=== PATIENT | male | born 1965 | race Caucasian/White ===

== ENCOUNTER → 2016-11-08 | Outpatient (CLI) | payer BC | LOC: LAB 13:11 | DX: E83.118 Other hemochromatosis (principal) ==

== ENCOUNTER → 2016-12-18 | Outpatient (CLI) | payer BC | LOC: LAB 14:29 | DX: E83.118 Other hemochromatosis (principal) ==

== ENCOUNTER → 2017-01-15 | Outpatient (CLI) | payer BC | LOC: LAB 14:03 | DX: E83.118 Other hemochromatosis (principal) ==

== ENCOUNTER → 2017-03-07 | Outpatient (CLI) | payer BC | LOC: LAB 13:13 | DX: E83.118 Other hemochromatosis (principal) ==

== ENCOUNTER → 2017-03-27 | Outpatient (REF) | LOC: LAB 14:01 | DX: E83.119 Hemochromatosis, unspecified (principal) ==

== ENCOUNTER → 2017-03-27 | Outpatient (CLI) | payer BC | LOC: LAB 14:03 | DX: E83.118 Other hemochromatosis (principal) ==

== ENCOUNTER → 2017-05-02 | Outpatient (CLI) | payer BC | LOC: LAB 13:46 | DX: E83.118 Other hemochromatosis (principal) ==

== ENCOUNTER → 2017-05-02 | Outpatient (REF) | LOC: LAB 13:43 | DX: E83.119 Hemochromatosis, unspecified (principal) ==

== ENCOUNTER → 2017-06-01 | Outpatient (REF) | LOC: LAB 13:23 | DX: E83.119 Hemochromatosis, unspecified (principal) ==

== ENCOUNTER → 2017-06-01 | Outpatient (CLI) | payer BC | LOC: LAB 13:25 | DX: E83.118 Other hemochromatosis (principal) ==

== ENCOUNTER → 2017-06-27 | Outpatient (REF) | LOC: LAB 10:01 | DX: E83.118 Other hemochromatosis (principal) ==

== ENCOUNTER → 2017-07-30 | Outpatient (REF) | LOC: LAB 13:55 | DX: E83.118 Other hemochromatosis (principal) ==

== ENCOUNTER → 2018-07-26 | Outpatient (CLI) | payer BC | LOC: CARDREHAB 11:26 | DX: G47.33 Obstructive sleep apnea (adult) (pediatric) (principal); R06.83 Snoring; R09.02 Hypoxemia; R53.83 Other fatigue; G47.10 Hypersomnia, unspecified; E66.3 Overweight; Z68.29 Body mass index [BMI] 29.0-29.9, adult | CPT/HCPCS: G0399 ==

== ENCOUNTER → 2018-08-30 | Outpatient (CLI) | payer BC ==
[2018-08-30 11:45] LABS: EOS # 0.1 (0.04-0.40); LYMPH# 1.9 (1.50-4.00); MEAN CELL VOLUME 99 fl (78-100); MEAN CORPUSCULAR HEMOGLOBIN 34 pg (27-31); MEAN CORPUSCULAR HGB CONC 34 g/dL (33-37); MEAN PLATELET VOLUME 9.9 fl (7.4-10.4); PLATELET COUNT 184 K/mm3 (130-400); RED BLOOD COUNT 4.75 M/mm3 (4.20-5.60); RED CELL DISTRIBUTION WIDTH 12.7 % (11.5-14.5)
== END ==
LOC: LAB 10:36
PROVIDERS: Internal Medicine Medical Oncology
DX: E83.119 Hemochromatosis, unspecified (principal)

== ENCOUNTER → 2018-09-20 | Outpatient (CLI) | payer BC ==
[2018-09-20 14:31] LABS: HEMOGLOBIN 14.7 g/dL (13.5-18.0)
== END ==
LOC: LAB 14:13
PROVIDERS: Internal Medicine Medical Oncology
DX: E83.119 Hemochromatosis, unspecified (principal)

== ENCOUNTER → 2018-10-25 | Outpatient (CLI) | payer BC ==
[2018-10-25 15:07] LABS: HEMATOCRIT 43.2 % (42.0-52.0); HEMOGLOBIN 14.6 g/dL (13.5-18.0)
== END ==
LOC: LAB 14:29
PROVIDERS: Internal Medicine Medical Oncology
DX: E83.119 Hemochromatosis, unspecified (principal)

== ENCOUNTER → 2018-11-11 | Outpatient (CLI) | payer BC ==
[2018-11-11 14:43] LABS: HEMATOCRIT 42.7 % (42.0-52.0); HEMOGLOBIN 14.1 g/dL (13.5-18.0)
== END ==
LOC: LAB 14:28
PROVIDERS: Internal Medicine Medical Oncology
DX: E83.119 Hemochromatosis, unspecified (principal)

== ENCOUNTER → 2018-11-15 | Outpatient (CLI) | payer BC ==
[2018-11-15 09:55] LABS: ALBUMIN 4.1 g/dL (3.5-5.0); CALCIUM 8.9 mg/dL (8.4-10.2); POTASSIUM 4.1 mmol/L (3.6-5.0); TOTAL BILIRUBIN 0.4 mg/dL (0.2-1.3); TOTAL PROTEIN 6.9 g/dL (6.3-8.2)
[2018-11-15 09:56] LABS: HEMATOCRIT 38.5 % (42.0-52.0); HEMOGLOBIN 12.9 g/dL (13.5-18.0); MEAN CELL VOLUME 101 fl (78-100); MEAN CORPUSCULAR HEMOGLOBIN 34 pg (27-31); MEAN CORPUSCULAR HGB CONC 34 g/dL (33-37); MEAN PLATELET VOLUME 9.8 fl (7.4-10.4); PLATELET COUNT 169 K/mm3 (130-400); RED BLOOD COUNT 3.83 M/mm3 (4.20-5.60); RED CELL DISTRIBUTION WIDTH 12.2 % (11.5-14.5); WHITE BLOOD COUNT 5.1 K/mm3 (4.8-10.8)
[2018-11-15 10:54] LABS: LYMPHOCYTE 30 % (20-51); MONOCYTE 5 % (3-10); NEUTROPHILS 63 % (42-75)
[2018-11-15 10:55] LABS: ERYTHROCYTE SEDIMENTATION RATE 3 mm/hr (0-20)
[2018-11-15 23:27] LABS: TESTOSTERONE 203 ng/dL (221-716)
== END ==
LOC: LAB 09:14
PROVIDERS: Internal Medicine
DX: Z00.00 Encounter for general adult medical examination without abnormal findings (principal); E83.119 Hemochromatosis, unspecified

== ENCOUNTER → 2019-01-30 | Outpatient (CLI) | payer BC ==
[2019-01-30 15:12] LABS: EOS % 0.5 % (0.0-4.0); HEMATOCRIT 44.7 % (42.0-52.0); HEMOGLOBIN 14.7 g/dL (13.5-18.0); LYMPH# 1.7 (1.50-4.00); MEAN CELL VOLUME 99 fl (78-100); MEAN CORPUSCULAR HEMOGLOBIN 33 pg (27-31); MEAN CORPUSCULAR HGB CONC 33 g/dL (33-37); MEAN PLATELET VOLUME 9.3 fl (7.4-10.4); MONO # 0.9 (0.20-0.80); NEU # 5.4 (1.40-6.50); PLATELET COUNT 173 K/mm3 (130-400); RED BLOOD COUNT 4.51 M/mm3 (4.20-5.60); RED CELL DISTRIBUTION WIDTH 12.6 % (11.5-14.5); WHITE BLOOD COUNT 8.1 K/mm3 (4.8-10.8)
== END ==
LOC: LAB 15:00
PROVIDERS: Internal Medicine Medical Oncology
DX: E83.119 Hemochromatosis, unspecified (principal)

== ENCOUNTER → 2019-02-06 | Outpatient (CLI) | payer BC ==
[~2019-02-06] VITALS: Ht 188 cm; Wt 97.7 kg
[~2019-02-06] MED LIST: ANDRODERM2 MG/24 HR TP; ATORVASTATIN CA20 MG PO; LISINOPRIL10 MG PO; NOVAPLUS DE200 MG/ML IM; VENLAFAXINE HYD75 MG PO
[2019-02-06 15:55] VITALS: BP 128/84
--- NOTE | 2019-02-06 16:15 | NUR ---
PATIENT NOTIFIED DR. DUNN DID NOT WANT THE HOLTER MONITOR APPLIED. WILL FOLLOW UP WITH DR. DUNN FOR FURTHER CONCERNS OR RESULTS.
== END ==
LOC: AMSURD 15:38
DX: R00.0 Tachycardia, unspecified (principal)

== ENCOUNTER → 2019-03-05 | Outpatient (CLI) | payer BC ==
[2019-02-06 15:55] VITALS: BP 128/84
[2019-03-05 14:23] LABS: EOS % 0.5 % (0.0-4.0); HEMATOCRIT 46.7 % (42.0-52.0); HEMOGLOBIN 15.2 g/dL (13.5-18.0); LYMPH# 1.5 (1.50-4.00); MEAN CELL VOLUME 99 fl (78-100); MEAN CORPUSCULAR HEMOGLOBIN 32 pg (27-31); MEAN CORPUSCULAR HGB CONC 33 g/dL (33-37); MEAN PLATELET VOLUME 10.2 fl (7.4-10.4); MONO # 0.8 (0.20-0.80); NEU # 5.1 (1.40-6.50); PLATELET COUNT 187 K/mm3 (130-400); WHITE BLOOD COUNT 7.5 K/mm3 (4.8-10.8)
== END ==
LOC: LAB 13:48
PROVIDERS: Internal Medicine Medical Oncology
DX: E83.118 Other hemochromatosis (principal)

== ENCOUNTER 2019-05-29 15:30 | Outpatient (RCR) | payer BC ==
[2019-02-06 15:55] VITALS: BP 128/84
== END 2019-05-29 16:00 | disposition still patient (30) ==
LOC: PT 15:30
DX: M25.511 Pain in right shoulder (principal); M25.512 Pain in left shoulder

== ENCOUNTER → 2020-09-21 | Outpatient (CLI) | payer OTHER ==
[2019-02-06 15:55] VITALS: BP 128/84
[2020-09-21 13:55] LABS: HEMATOCRIT 49.3 % (42.0-52.0); HEMOGLOBIN 16.8 g/dL (13.5-18.0)
== END ==
LOC: LAB 13:41
PROVIDERS: Internal Medicine Medical Oncology
DX: E83.118 Other hemochromatosis (principal)

== ENCOUNTER → 2020-10-06 | Outpatient (CLI) | payer OTHER ==
[2019-02-06 15:55] VITALS: BP 128/84
[2020-10-06 14:46] LABS: EOS # 0.1 (0.04-0.40); EOS % 0.8 % (0.0-4.0); HEMOGLOBIN 15.7 g/dL (13.5-18.0); LYMPH# 1.7 (1.50-4.00); MEAN CELL VOLUME 101 fl (78-100); MEAN CORPUSCULAR HEMOGLOBIN 34 pg (27-31); MEAN CORPUSCULAR HGB CONC 33 g/dL (33-37); MEAN PLATELET VOLUME 9.9 fl (7.4-10.4); NEU # 5.6 (1.40-6.50); PLATELET COUNT 190 K/mm3 (130-400); RED BLOOD COUNT 4.66 M/mm3 (4.20-5.60); RED CELL DISTRIBUTION WIDTH 12.7 % (11.5-14.5); WHITE BLOOD COUNT 8.4 K/mm3 (4.8-10.8)
== END ==
LOC: LAB 14:24
PROVIDERS: Internal Medicine Medical Oncology
DX: E83.119 Hemochromatosis, unspecified (principal)

== ENCOUNTER → 2020-10-22 | Outpatient (CLI) | payer OTHER ==
[2019-02-06 15:55] VITALS: BP 128/84
[2020-10-22 14:12] LABS: EOS # 0.1 (0.04-0.40); HEMATOCRIT 42.5 % (42.0-52.0); HEMOGLOBIN 14.6 g/dL (13.5-18.0); LYMPH# 1.9 (1.50-4.00); MEAN CELL VOLUME 99 fl (78-100); MEAN CORPUSCULAR HEMOGLOBIN 34 pg (27-31); MEAN CORPUSCULAR HGB CONC 34 g/dL (33-37); NEU # 6.1 (1.40-6.50); PLATELET COUNT 254 K/mm3 (130-400); WHITE BLOOD COUNT 9.1 K/mm3 (4.8-10.8)
== END ==
LOC: LAB 13:54
PROVIDERS: Internal Medicine Medical Oncology
DX: E83.118 Other hemochromatosis (principal)

== ENCOUNTER → 2020-11-05 | Outpatient (CLI) | payer OTHER ==
[2019-02-06 15:55] VITALS: BP 128/84
[2020-11-05 14:49] LABS: ALBUMIN 4.4 g/dL (3.5-5.0); POTASSIUM 3.9 mmol/L (3.5-5.1)
[2020-11-05 14:50] LABS: HEMATOCRIT 44.2 % (42.0-52.0); HEMOGLOBIN 14.7 g/dL (13.5-18.0); MEAN CELL VOLUME 101 fl (78-100); MEAN CORPUSCULAR HEMOGLOBIN 34 pg (27-31); MEAN CORPUSCULAR HGB CONC 33 g/dL (33-37); MEAN PLATELET VOLUME 9.8 fl (7.4-10.4); PLATELET COUNT 204 K/mm3 (130-400); RED BLOOD COUNT 4.37 M/mm3 (4.20-5.60); RED CELL DISTRIBUTION WIDTH 12.4 % (11.5-14.5); WHITE BLOOD COUNT 8.2 K/mm3 (4.8-10.8)
[2020-11-05 14:51] LABS: TOTAL PROTEIN 7.3 g/dL (6.4-8.3)
[2020-11-05 14:53] LABS: TOTAL BILIRUBIN 0.7 mg/dL (0.2-1.2)
[2020-11-05 15:00] LABS: BAND 2 % (0-10); LYMPHOCYTE 26 % (20-51); MONOCYTE 11 % (3-10); NEUTROPHILS 61 % (42-75)
== END ==
LOC: LAB 14:22
PROVIDERS: Internal Medicine Medical Oncology
DX: E83.118 Other hemochromatosis (principal)

== ENCOUNTER → 2020-11-18 | Outpatient (CLI) | payer OTHER ==
[2019-02-06 15:55] VITALS: BP 128/84
[2020-11-18 14:39] LABS: EOS # 0.1 (0.04-0.40); EOS % 0.8 % (0.0-4.0); HEMATOCRIT 44.4 % (42.0-52.0); HEMOGLOBIN 14.7 g/dL (13.5-18.0); MEAN CELL VOLUME 102 fl (78-100); MEAN CORPUSCULAR HEMOGLOBIN 34 pg (27-31); MEAN CORPUSCULAR HGB CONC 33 g/dL (33-37); MEAN PLATELET VOLUME 9.4 fl (7.4-10.4); NEU # 5.3 (1.40-6.50); PLATELET COUNT 174 K/mm3 (130-400); RED BLOOD COUNT 4.35 M/mm3 (4.20-5.60); RED CELL DISTRIBUTION WIDTH 12.4 % (11.5-14.5); WHITE BLOOD COUNT 8.5 K/mm3 (4.8-10.8)
== END ==
LOC: LAB 14:24
PROVIDERS: Internal Medicine Medical Oncology
DX: E83.119 Hemochromatosis, unspecified (principal)

== ENCOUNTER → 2020-12-10 | Outpatient (CLI) | payer OTHER ==
[2019-02-06 15:55] VITALS: BP 128/84
[2020-12-10 10:35] LABS: EOS # 0.1 (0.04-0.40); EOS % 1.3 % (0.0-4.0); HEMATOCRIT 46.6 % (42.0-52.0); HEMOGLOBIN 15.5 g/dL (13.5-18.0); LYMPH# 1.6 (1.50-4.00); MEAN CELL VOLUME 101 fl (78-100); MEAN CORPUSCULAR HEMOGLOBIN 34 pg (27-31); MEAN CORPUSCULAR HGB CONC 33 g/dL (33-37); MEAN PLATELET VOLUME 9.6 fl (7.4-10.4); MONO # 0.7 (0.20-0.80); NEU # 3.8 (1.40-6.50); PLATELET COUNT 168 K/mm3 (130-400); RED BLOOD COUNT 4.63 M/mm3 (4.20-5.60); RED CELL DISTRIBUTION WIDTH 12.8 % (11.5-14.5); WHITE BLOOD COUNT 6.1 K/mm3 (4.8-10.8)
== END ==
LOC: LAB 10:14
PROVIDERS: Internal Medicine Medical Oncology
DX: E83.118 Other hemochromatosis (principal)

== ENCOUNTER → 2021-01-04 | Outpatient (CLI) | payer OTHER ==
[2019-02-06 15:55] VITALS: BP 128/84
[2021-01-04 15:01] LABS: HEMATOCRIT 45.8 % (42.0-52.0); HEMOGLOBIN 15.6 g/dL (13.5-18.0); MEAN CELL VOLUME 99 fl (78-100); MEAN CORPUSCULAR HEMOGLOBIN 34 pg (27-31); MEAN CORPUSCULAR HGB CONC 34 g/dL (33-37); MEAN PLATELET VOLUME 9.8 fl (7.4-10.4); PLATELET COUNT 165 K/mm3 (130-400); RED BLOOD COUNT 4.62 M/mm3 (4.20-5.60); RED CELL DISTRIBUTION WIDTH 12.7 % (11.5-14.5); WHITE BLOOD COUNT 6.7 K/mm3 (4.8-10.8)
[2021-01-04 16:39] LABS: LYMPHOCYTE 26 % (20-51); MONOCYTE 14 % (3-10); NEUTROPHILS 60 % (42-75)
== END ==
LOC: LAB 14:44
PROVIDERS: Internal Medicine Medical Oncology
DX: E83.118 Other hemochromatosis (principal)

== ENCOUNTER → 2021-02-28 | Outpatient (CLI) | payer OTHER ==
[2019-02-06 15:55] VITALS: BP 128/84
[2021-02-28 14:11] LABS: BASO # 0.02 (0.02-0.10); EOS # 0.06 (0.04-0.40); EOS % 0.7 % (0.0-4.0); HEMATOCRIT 44.6 % (42.0-52.0); HEMOGLOBIN 14.9 g/dL (13.5-18.0); MEAN CELL VOLUME 101 fl (78-100); MEAN CORPUSCULAR HEMOGLOBIN 34 pg (27-31); MEAN CORPUSCULAR HGB CONC 33 g/dL (33-37); MEAN PLATELET VOLUME 9.8 fl (7.4-10.4); MONO # 0.78 (0.20-0.80); NEU # 5.94 (1.40-6.50); PLATELET COUNT 171 K/mm3 (130-400); RED BLOOD COUNT 4.44 M/mm3 (4.20-5.60); RED CELL DISTRIBUTION WIDTH 12.7 % (11.5-14.5); WHITE BLOOD COUNT 8.5 K/mm3 (4.8-10.8)
[2021-02-28 14:17] LABS: ALBUMIN 4.1 g/dL (3.5-5.0); POTASSIUM 3.9 mmol/L (3.5-5.1)
[2021-02-28 14:18] LABS: CALCIUM 8.7 mg/dL (8.3-10.5)
[2021-02-28 14:19] LABS: TOTAL PROTEIN 7.1 g/dL (6.4-8.3)
[2021-02-28 14:21] LABS: TOTAL BILIRUBIN 0.8 mg/dL (0.2-1.2)
[2021-02-28 15:36] LABS: ERYTHROCYTE SEDIMENTATION RATE 0 mm/hr (0-20)
[2021-02-28 22:46] LABS: TESTOSTERONE 145 ng/dL (221-716)
== END ==
LOC: LAB 13:48
PROVIDERS: Internal Medicine
DX: Z00.00 Encounter for general adult medical examination without abnormal findings (principal); Z12.5 Encounter for screening for malignant neoplasm of prostate; E83.118 Other hemochromatosis; K90.9 Intestinal malabsorption, unspecified

== ENCOUNTER → 2021-03-10 | Outpatient (CLI) | payer OTHER ==
[2019-02-06 15:55] VITALS: BP 128/84
[2021-03-10 14:48] LABS: HEMATOCRIT 42.7 % (42.0-52.0); HEMOGLOBIN 14.9 g/dL (13.5-18.0)
== END ==
LOC: LAB 14:34
PROVIDERS: Internal Medicine Medical Oncology
DX: E83.118 Other hemochromatosis (principal)

== ENCOUNTER → 2021-03-16 | Outpatient (CLI) | payer OTHER ==
[2019-02-06 15:55] VITALS: BP 128/84
[2021-03-16 14:59] LABS: BASO # 0.04 (0.02-0.10); EOS # 0.11 (0.04-0.40); EOS % 1.2 % (0.0-4.0); HEMATOCRIT 38.4 % (42.0-52.0); HEMOGLOBIN 13.3 g/dL (13.5-18.0); LYMPH# 2.12 (1.50-4.00); MEAN CELL VOLUME 100 fl (78-100); MEAN CORPUSCULAR HEMOGLOBIN 35 pg (27-31); MEAN CORPUSCULAR HGB CONC 35 g/dL (33-37); MEAN PLATELET VOLUME 9.4 fl (7.4-10.4); PLATELET COUNT 207 K/mm3 (130-400); RED BLOOD COUNT 3.85 M/mm3 (4.20-5.60); RED CELL DISTRIBUTION WIDTH 12.6 % (11.5-14.5); WHITE BLOOD COUNT 9.1 K/mm3 (4.8-10.8)
[2021-03-16 15:14] LABS: ALBUMIN 3.9 g/dL (3.5-5.0); POTASSIUM 4.1 mmol/L (3.5-5.1)
[2021-03-16 15:16] LABS: CALCIUM 8.9 mg/dL (8.3-10.5)
[2021-03-16 15:17] LABS: TOTAL PROTEIN 6.4 g/dL (6.4-8.3)
[2021-03-16 15:19] LABS: TOTAL BILIRUBIN 0.5 mg/dL (0.2-1.2)
== END ==
LOC: LAB 14:46
PROVIDERS: Internal Medicine Medical Oncology
DX: E83.118 Other hemochromatosis (principal)

== ENCOUNTER → 2021-03-24 | Outpatient (CLI) | payer OTHER ==
[2019-02-06 15:55] VITALS: BP 128/84
[2021-03-24 13:47] LABS: BASO # 0.02 (0.02-0.10); EOS # 0.08 (0.04-0.40); EOS % 0.8 % (0.0-4.0); HEMATOCRIT 38.2 % (42.0-52.0); HEMOGLOBIN 12.8 g/dL (13.5-18.0); LYMPH# 2.18 (1.50-4.00); MEAN CELL VOLUME 103 fl (78-100); MEAN CORPUSCULAR HEMOGLOBIN 35 pg (27-31); MEAN CORPUSCULAR HGB CONC 34 g/dL (33-37); MEAN PLATELET VOLUME 9.2 fl (7.4-10.4); MONO # 1.03 (0.20-0.80); NEU # 6.96 (1.40-6.50); PLATELET COUNT 202 K/mm3 (130-400); RED CELL DISTRIBUTION WIDTH 13.8 % (11.5-14.5); WHITE BLOOD COUNT 10.4 K/mm3 (4.8-10.8)
== END ==
LOC: LAB 13:32
PROVIDERS: Internal Medicine Medical Oncology
DX: E83.118 Other hemochromatosis (principal)

== ENCOUNTER → 2021-03-31 | Outpatient (CLI) | payer OTHER ==
[2021-03-31 14:27] LABS: BASO # 0.04 (0.02-0.10); EOS # 0.09 (0.04-0.40); EOS % 1.2 % (0.0-4.0); HEMATOCRIT 36.6 % (42.0-52.0); LYMPH# 1.77 (1.50-4.00); MEAN CELL VOLUME 107 fl (78-100); MEAN CORPUSCULAR HEMOGLOBIN 35 pg (27-31); MEAN CORPUSCULAR HGB CONC 33 g/dL (33-37); MEAN PLATELET VOLUME 9.3 fl (7.4-10.4); MONO # 0.78 (0.20-0.80); PLATELET COUNT 174 K/mm3 (130-400); RED BLOOD COUNT 3.42 M/mm3 (4.20-5.60); RED CELL DISTRIBUTION WIDTH 15.4 % (11.5-14.5); WHITE BLOOD COUNT 7.7 K/mm3 (4.8-10.8)
[2021-03-31 14:35] LABS: ALBUMIN 3.8 g/dL (3.5-5.0)
[2021-03-31 14:36] LABS: POTASSIUM 3.7 mmol/L (3.5-5.1)
[2021-03-31 14:37] LABS: CALCIUM 8.6 mg/dL (8.3-10.5)
[2021-03-31 14:38] LABS: TOTAL PROTEIN 6.4 g/dL (6.4-8.3)
[2021-03-31 14:40] LABS: TOTAL BILIRUBIN 0.5 mg/dL (0.2-1.2)
== END ==
LOC: LAB 14:14
PROVIDERS: Internal Medicine Medical Oncology
DX: E83.118 Other hemochromatosis (principal)

== ENCOUNTER → 2021-04-14 | Outpatient (CLI) | payer OTHER ==
[2021-04-14 13:33] LABS: BASO # 0.03 (0.02-0.10); EOS # 0.07 (0.04-0.40); EOS % 0.9 % (0.0-4.0); HEMATOCRIT 40.9 % (42.0-52.0); HEMOGLOBIN 13.6 g/dL (13.5-18.0); LYMPH# 1.99 (1.50-4.00); MEAN CELL VOLUME 105 fl (78-100); MEAN CORPUSCULAR HEMOGLOBIN 35 pg (27-31); MEAN CORPUSCULAR HGB CONC 33 g/dL (33-37); MEAN PLATELET VOLUME 9.5 fl (7.4-10.4); MONO # 0.94 (0.20-0.80); NEU # 5.14 (1.40-6.50); PLATELET COUNT 174 K/mm3 (130-400); RED BLOOD COUNT 3.89 M/mm3 (4.20-5.60); RED CELL DISTRIBUTION WIDTH 13.7 % (11.5-14.5); WHITE BLOOD COUNT 8.2 K/mm3 (4.8-10.8)
== END ==
LOC: LAB 13:22
PROVIDERS: Internal Medicine Medical Oncology
DX: E83.118 Other hemochromatosis (principal)

== ENCOUNTER → 2021-04-28 | Outpatient (CLI) | payer OTHER ==
[2021-04-28 14:29] LABS: BASO # 0.04 (0.02-0.10); EOS # 0.07 (0.04-0.40); EOS % 0.8 % (0.0-4.0); HEMATOCRIT 42.7 % (42.0-52.0); HEMOGLOBIN 14.2 g/dL (13.5-18.0); LYMPH# 1.85 (1.50-4.00); MEAN CELL VOLUME 102 fl (78-100); MEAN CORPUSCULAR HEMOGLOBIN 34 pg (27-31); MEAN CORPUSCULAR HGB CONC 33 g/dL (33-37); MEAN PLATELET VOLUME 9.2 fl (7.4-10.4); MONO # 1.06 (0.20-0.80); NEU # 5.82 (1.40-6.50); PLATELET COUNT 202 K/mm3 (130-400); RED BLOOD COUNT 4.17 M/mm3 (4.20-5.60); RED CELL DISTRIBUTION WIDTH 12.8 % (11.5-14.5); WHITE BLOOD COUNT 8.9 K/mm3 (4.8-10.8)
== END ==
LOC: LAB 14:14
PROVIDERS: Internal Medicine Medical Oncology
DX: E83.118 Other hemochromatosis (principal)

== ENCOUNTER → 2021-05-10 | Outpatient (CLI) | payer OTHER | LOC: LAB 10:05 | DX: Z20.822 Contact with and (suspected) exposure to COVID-19 (principal) ==

== ENCOUNTER → 2021-05-12 | Outpatient (CLI) | payer OTHER ==
[2021-05-12 14:07] LABS: BASO # 0.05 (0.02-0.10); EOS # 0.07 (0.04-0.40); EOS % 0.7 % (0.0-4.0); HEMATOCRIT 44.6 % (42.0-52.0); HEMOGLOBIN 14.6 g/dL (13.5-18.0); MEAN CELL VOLUME 101 fl (78-100); MEAN CORPUSCULAR HEMOGLOBIN 33 pg (27-31); MEAN CORPUSCULAR HGB CONC 33 g/dL (33-37); MEAN PLATELET VOLUME 9.3 fl (7.4-10.4); MONO # 0.92 (0.20-0.80); NEU # 7.48 (1.40-6.50); PLATELET COUNT 207 K/mm3 (130-400); RED CELL DISTRIBUTION WIDTH 12.4 % (11.5-14.5); WHITE BLOOD COUNT 10.3 K/mm3 (4.8-10.8)
[2021-05-12 14:10] LABS: ALBUMIN 4.2 g/dL (3.5-5.0); POTASSIUM 4.1 mmol/L (3.5-5.1)
[2021-05-12 14:11] LABS: CALCIUM 9.3 mg/dL (8.3-10.5)
[2021-05-12 14:12] LABS: TOTAL PROTEIN 7.5 g/dL (6.4-8.3)
[2021-05-12 14:14] LABS: TOTAL BILIRUBIN 0.6 mg/dL (0.2-1.2)
== END ==
LOC: LAB 13:48
PROVIDERS: Internal Medicine Medical Oncology
DX: Z01.89 Encounter for other specified special examinations (principal)

== ENCOUNTER → 2021-05-26 | Outpatient (CLI) | payer OTHER ==
[2021-05-26 14:48] LABS: BASO # 0.03 (0.02-0.10); EOS # 0.08 (0.04-0.40); EOS % 0.8 % (0.0-4.0); HEMATOCRIT 40.8 % (42.0-52.0); LYMPH# 1.79 (1.50-4.00); MEAN CELL VOLUME 102 fl (78-100); MEAN CORPUSCULAR HEMOGLOBIN 33 pg (27-31); MEAN CORPUSCULAR HGB CONC 32 g/dL (33-37); MEAN PLATELET VOLUME 9.2 fl (7.4-10.4); MONO # 1.24 (0.20-0.80); NEU # 7.06 (1.40-6.50); PLATELET COUNT 194 K/mm3 (130-400); RED BLOOD COUNT 3.99 M/mm3 (4.20-5.60); RED CELL DISTRIBUTION WIDTH 12.8 % (11.5-14.5); WHITE BLOOD COUNT 10.2 K/mm3 (4.8-10.8)
== END ==
LOC: LAB 14:38
PROVIDERS: Internal Medicine Medical Oncology
DX: E83.118 Other hemochromatosis (principal)

== ENCOUNTER → 2021-06-02 | Outpatient (CLI) | payer OTHER ==
[2021-06-02 15:07] LABS: BASO # 0.02 (0.02-0.10); EOS % 1.1 % (0.0-4.0); HEMATOCRIT 40.2 % (42.0-52.0); HEMOGLOBIN 12.7 g/dL (13.5-18.0); LYMPH# 1.81 (1.50-4.00); MEAN CELL VOLUME 99 fl (78-100); MEAN CORPUSCULAR HEMOGLOBIN 31 pg (27-31); MEAN CORPUSCULAR HGB CONC 32 g/dL (33-37); MEAN PLATELET VOLUME 9.2 fl (7.4-10.4); MONO # 1.09 (0.20-0.80); NEU # 6.06 (1.40-6.50); PLATELET COUNT 260 K/mm3 (130-400); RED BLOOD COUNT 4.06 M/mm3 (4.20-5.60); RED CELL DISTRIBUTION WIDTH 12.7 % (11.5-14.5); WHITE BLOOD COUNT 9.1 K/mm3 (4.8-10.8)
[2021-06-02 15:14] LABS: ALBUMIN 4.2 g/dL (3.5-5.0)
[2021-06-02 15:16] LABS: CALCIUM 9.4 mg/dL (8.3-10.5)
[2021-06-02 15:17] LABS: TOTAL PROTEIN 7.3 g/dL (6.4-8.3)
[2021-06-02 15:19] LABS: TOTAL BILIRUBIN 0.3 mg/dL (0.2-1.2)
== END ==
LOC: LAB 14:28
PROVIDERS: Internal Medicine Medical Oncology
DX: Z01.89 Encounter for other specified special examinations (principal)

== ENCOUNTER → 2021-06-24 | Outpatient (CLI) | payer OTHER ==
[2021-06-24 14:17] LABS: ALBUMIN 4.3 g/dL (3.5-5.0); BASO # 0.04 (0.02-0.10); EOS # 0.11 (0.04-0.40); EOS % 1.3 % (0.0-4.0); HEMATOCRIT 42.2 % (42.0-52.0); HEMOGLOBIN 13.4 g/dL (13.5-18.0); LYMPH# 1.69 (1.50-4.00); MEAN CELL VOLUME 93 fl (78-100); MEAN CORPUSCULAR HEMOGLOBIN 30 pg (27-31); MEAN CORPUSCULAR HGB CONC 32 g/dL (33-37); MEAN PLATELET VOLUME 9.4 fl (7.4-10.4); NEU # 5.78 (1.40-6.50); PLATELET COUNT 204 K/mm3 (130-400); POTASSIUM 4.1 mmol/L (3.5-5.1); RED BLOOD COUNT 4.52 M/mm3 (4.20-5.60); RED CELL DISTRIBUTION WIDTH 13.7 % (11.5-14.5); WHITE BLOOD COUNT 8.6 K/mm3 (4.8-10.8)
[2021-06-24 14:18] LABS: CALCIUM 9.9 mg/dL (8.3-10.5)
[2021-06-24 14:19] LABS: TOTAL PROTEIN 7.5 g/dL (6.4-8.3)
[2021-06-24 14:21] LABS: TOTAL BILIRUBIN 0.7 mg/dL (0.2-1.2)
== END ==
LOC: LAB 13:57
PROVIDERS: Internal Medicine Medical Oncology
DX: E83.118 Other hemochromatosis (principal)

== ENCOUNTER → 2021-07-14 | Outpatient (CLI) | payer OTHER ==
[2021-07-14 15:05] LABS: BASO # 0.04 (0.02-0.10); EOS # 0.13 (0.04-0.40); EOS % 1.3 % (0.0-4.0); HEMATOCRIT 42.9 % (42.0-52.0); HEMOGLOBIN 13.7 g/dL (13.5-18.0); LYMPH# 1.79 (1.50-4.00); MEAN CELL VOLUME 89 fl (78-100); MEAN CORPUSCULAR HEMOGLOBIN 29 pg (27-31); MEAN CORPUSCULAR HGB CONC 32 g/dL (33-37); MEAN PLATELET VOLUME 9.6 fl (7.4-10.4); MONO # 1.23 (0.20-0.80); NEU # 6.47 (1.40-6.50); PLATELET COUNT 224 K/mm3 (130-400); WHITE BLOOD COUNT 9.7 K/mm3 (4.8-10.8)
== END ==
LOC: LAB 14:35
PROVIDERS: Internal Medicine Medical Oncology
DX: E83.118 Other hemochromatosis (principal)

== ENCOUNTER → 2021-07-28 | Outpatient (CLI) | payer OTHER ==
[2021-07-28 15:16] LABS: BASO # 0.04 K/mm3 (0.02-0.10); EOS # 0.11 K/mm3 (0.04-0.40); HEMATOCRIT 45.8 % (42.0-52.0); HEMOGLOBIN 14.5 g/dL (13.5-18.0); LYMPH# 2.06 K/mm3 (1.50-4.00); MEAN CELL VOLUME 90 fl (78-100); MEAN CORPUSCULAR HEMOGLOBIN 28 pg (27-31); MEAN CORPUSCULAR HGB CONC 32 g/dL (33-37); MEAN PLATELET VOLUME 9.6 fl (7.4-10.4); MONO # 1.39 K/mm3 (0.20-0.80); PLATELET COUNT 247 K/mm3 (130-400); RED BLOOD COUNT 5.12 M/mm3 (4.20-5.60); RED CELL DISTRIBUTION WIDTH 15.2 % (11.5-14.5); WHITE BLOOD COUNT 11.1 K/mm3 (4.8-10.8)
== END ==
LOC: LAB 14:33
PROVIDERS: Internal Medicine Medical Oncology
DX: E83.118 Other hemochromatosis (principal)

== ENCOUNTER → 2021-08-04 | Outpatient (CLI) | payer OTHER ==
[2021-08-04 14:56] LABS: ALBUMIN 4.1 g/dL (3.5-5.0); POTASSIUM 3.9 mmol/L (3.5-5.1)
[2021-08-04 14:57] LABS: CALCIUM 9.8 mg/dL (8.3-10.5)
[2021-08-04 14:59] LABS: TOTAL PROTEIN 7.3 g/dL (6.4-8.3)
[2021-08-04 15:00] LABS: TOTAL BILIRUBIN 0.5 mg/dL (0.2-1.2)
== END ==
LOC: LAB 14:02
PROVIDERS: Internal Medicine
DX: E83.118 Other hemochromatosis (principal)

== ENCOUNTER → 2021-09-29 | Outpatient (CLI) | payer OTHER ==
[2021-09-29 14:14] LABS: BASO # 0.02 K/mm3 (0.02-0.10); EOS % 0.9 % (0.0-4.0); HEMATOCRIT 45.7 % (42.0-52.0); HEMOGLOBIN 14.5 g/dL (13.5-18.0); LYMPH# 1.04 K/mm3 (1.50-4.00); MEAN CELL VOLUME 89 fl (78-100); MEAN CORPUSCULAR HEMOGLOBIN 28 pg (27-31); MEAN CORPUSCULAR HGB CONC 32 g/dL (33-37); MEAN PLATELET VOLUME 8.9 fl (7.4-10.4); MONO # 1.04 K/mm3 (0.20-0.80); NEU # 9.22 K/mm3 (1.40-6.50); PLATELET COUNT 258 K/mm3 (130-400); RED BLOOD COUNT 5.14 M/mm3 (4.20-5.60); RED CELL DISTRIBUTION WIDTH 14.2 % (11.5-14.5); WHITE BLOOD COUNT 11.5 K/mm3 (4.8-10.8)
[2021-09-29 14:44] LABS: ALBUMIN 4.5 g/dL (3.5-5.0); POTASSIUM 4.2 mmol/L (3.5-5.1)
[2021-09-29 14:46] LABS: CALCIUM 9.7 mg/dL (8.3-10.5)
[2021-09-29 14:49] LABS: TOTAL BILIRUBIN 0.6 mg/dL (0.2-1.2)
== END ==
LOC: LAB 14:00
PROVIDERS: Internal Medicine
DX: E83.118 Other hemochromatosis (principal); E23.7 Disorder of pituitary gland, unspecified; E78.2 Mixed hyperlipidemia; M25.572 Pain in left ankle and joints of left foot

== ENCOUNTER → 2021-10-11 | Outpatient (CLI) | payer OTHER ==
[2021-10-11 14:41] LABS: MEAN CELL VOLUME 89 fl (78-100); MEAN CORPUSCULAR HEMOGLOBIN 28 pg (27-31); MEAN CORPUSCULAR HGB CONC 32 g/dL (33-37); MEAN PLATELET VOLUME 8.7 fl (7.4-10.4); PLATELET COUNT 233 K/mm3 (130-400); RED BLOOD COUNT 5.29 M/mm3 (4.20-5.60); RED CELL DISTRIBUTION WIDTH 14.2 % (11.5-14.5); WHITE BLOOD COUNT 11.2 K/mm3 (4.8-10.8)
[2021-10-11 14:47] LABS: ALBUMIN 4.3 g/dL (3.5-5.0); POTASSIUM 4.2 mmol/L (3.5-5.1)
[2021-10-11 14:48] LABS: CALCIUM 9.3 mg/dL (8.3-10.5)
[2021-10-11 14:49] LABS: TOTAL PROTEIN 7.5 g/dL (6.4-8.3)
[2021-10-11 14:51] LABS: TOTAL BILIRUBIN 0.6 mg/dL (0.2-1.2)
[2021-10-11 15:30] LABS: LYMPHOCYTE 19 % (20-51); MONOCYTE 15 % (3-10); NEUTROPHILS 64 % (42-75)
== END ==
LOC: LAB 14:28
PROVIDERS: Internal Medicine Medical Oncology
DX: E83.118 Other hemochromatosis (principal)

== ENCOUNTER → 2021-11-07 | Outpatient (CLI) | payer OTHER ==
[2021-11-07 14:31] LABS: BASO # 0.03 K/mm3 (0.02-0.10); EOS % 0.9 % (0.0-4.0); HEMATOCRIT 47.4 % (42.0-52.0); HEMOGLOBIN 15.4 g/dL (13.5-18.0); LYMPH# 1.83 K/mm3 (1.50-4.00); MEAN CELL VOLUME 90 fl (78-100); MEAN CORPUSCULAR HEMOGLOBIN 29 pg (27-31); MEAN CORPUSCULAR HGB CONC 33 g/dL (33-37); MEAN PLATELET VOLUME 9.3 fl (7.4-10.4); MONO # 1.21 K/mm3 (0.20-0.80); NEU # 7.33 K/mm3 (1.40-6.50); PLATELET COUNT 206 K/mm3 (130-400); RED BLOOD COUNT 5.29 M/mm3 (4.20-5.60); RED CELL DISTRIBUTION WIDTH 15.2 % (11.5-14.5); WHITE BLOOD COUNT 10.5 K/mm3 (4.8-10.8)
[2021-11-07 14:40] LABS: ALBUMIN 4.3 g/dL (3.5-5.0)
[2021-11-07 14:42] LABS: CALCIUM 9.1 mg/dL (8.3-10.5)
[2021-11-07 14:43] LABS: TOTAL PROTEIN 7.3 g/dL (6.4-8.3)
[2021-11-07 14:45] LABS: TOTAL BILIRUBIN 0.7 mg/dL (0.2-1.2)
== END ==
LOC: LAB 14:10
PROVIDERS: Internal Medicine Medical Oncology
DX: E83.118 Other hemochromatosis (principal)

== ENCOUNTER → 2021-12-09 | Outpatient (CLI) | payer OTHER ==
[2021-12-09 13:41] LABS: BASO # 0.04 K/mm3 (0.02-0.10); EOS # 0.16 K/mm3 (0.04-0.40); EOS % 1.5 % (0.0-4.0); HEMATOCRIT 49.6 % (42.0-52.0); HEMOGLOBIN 16.1 g/dL (13.5-18.0); LYMPH# 1.75 K/mm3 (1.50-4.00); MEAN CELL VOLUME 91 fl (78-100); MEAN CORPUSCULAR HEMOGLOBIN 29 pg (27-31); MEAN CORPUSCULAR HGB CONC 33 g/dL (33-37); MEAN PLATELET VOLUME 9.5 fl (7.4-10.4); MONO # 1.17 K/mm3 (0.20-0.80); NEU # 7.42 K/mm3 (1.40-6.50); PLATELET COUNT 227 K/mm3 (130-400); RED BLOOD COUNT 5.47 M/mm3 (4.20-5.60); RED CELL DISTRIBUTION WIDTH 14.1 % (11.5-14.5); WHITE BLOOD COUNT 10.6 K/mm3 (4.8-10.8)
[2021-12-09 14:03] LABS: ALBUMIN 4.5 g/dL (3.5-5.0)
[2021-12-09 14:04] LABS: POTASSIUM 4.3 mmol/L (3.5-5.1)
[2021-12-09 14:05] LABS: CALCIUM 9.9 mg/dL (8.3-10.5)
[2021-12-09 14:06] LABS: TOTAL PROTEIN 7.6 g/dL (6.4-8.3)
[2021-12-09 14:08] LABS: TOTAL BILIRUBIN 0.6 mg/dL (0.2-1.2)
== END ==
LOC: LAB 13:30
PROVIDERS: Internal Medicine Medical Oncology
DX: E83.118 Other hemochromatosis (principal)

== ENCOUNTER → 2022-02-07 | Outpatient (CLI) | payer OTHER ==
[2022-02-07 15:50] LABS: BASO # 0.02 K/mm3 (0.02-0.10); EOS # 0.13 K/mm3 (0.04-0.40); EOS % 1.5 % (0.0-4.0); HEMATOCRIT 48.6 % (42.0-52.0); HEMOGLOBIN 15.7 g/dL (13.5-18.0); LYMPH# 1.49 K/mm3 (1.50-4.00); MEAN CELL VOLUME 90 fl (78-100); MEAN CORPUSCULAR HEMOGLOBIN 29 pg (27-31); MEAN CORPUSCULAR HGB CONC 32 g/dL (33-37); MEAN PLATELET VOLUME 9.3 fl (7.4-10.4); MONO # 1.25 K/mm3 (0.20-0.80); NEU # 5.67 K/mm3 (1.40-6.50); PLATELET COUNT 212 K/mm3 (130-400); RED CELL DISTRIBUTION WIDTH 12.8 % (11.5-14.5); WHITE BLOOD COUNT 8.6 K/mm3 (4.8-10.8)
[2022-02-07 15:59] LABS: ALBUMIN 4.3 g/dL (3.5-5.0); POTASSIUM 4.2 mmol/L (3.5-5.1)
[2022-02-07 16:00] LABS: CALCIUM 9.2 mg/dL (8.3-10.5)
[2022-02-07 16:02] LABS: TOTAL PROTEIN 7.3 g/dL (6.4-8.3)
[2022-02-07 16:03] LABS: TOTAL BILIRUBIN 0.6 mg/dL (0.2-1.2)
== END ==
LOC: LAB 15:20
PROVIDERS: Internal Medicine Medical Oncology
DX: E83.118 Other hemochromatosis (principal)

== ENCOUNTER → 2022-03-22 | Outpatient (CLI) | payer OTHER ==
[~2022-03-22] MED LIST changes: +AMLODIPINE BESYL5 MG PO; +ESCITALOPRAM10 MG PO; +QUETIAPINE FUMA25 M3 PO; +TESTOSTERO200 MG/1 M IM; +VITAMIN D21250 MCG PO; +ZYLOPRIM 100MG100 MG PO
[2022-03-22 13:48] LABS: BASO # 0.03 K/mm3 (0.02-0.10); EOS # 0.25 K/mm3 (0.04-0.40); EOS % 2.5 % (0.0-4.0); HEMATOCRIT 49.8 % (42.0-52.0); HEMOGLOBIN 16.3 g/dL (13.5-18.0); LYMPH# 1.66 K/mm3 (1.50-4.00); MEAN CELL VOLUME 90 fl (78-100); MEAN CORPUSCULAR HEMOGLOBIN 30 pg (27-31); MEAN CORPUSCULAR HGB CONC 33 g/dL (33-37); MEAN PLATELET VOLUME 9.3 fl (7.4-10.4); MONO # 1.13 K/mm3 (0.20-0.80); NEU # 6.89 K/mm3 (1.40-6.50); PLATELET COUNT 179 K/mm3 (130-400); RED BLOOD COUNT 5.52 M/mm3 (4.20-5.60); RED CELL DISTRIBUTION WIDTH 14.2 % (11.5-14.5)
[2022-03-22 13:56] LABS: ALBUMIN 4.5 g/dL (3.5-5.0); POTASSIUM 4.2 mmol/L (3.5-5.1)
[2022-03-22 13:57] LABS: CALCIUM 9.8 mg/dL (8.3-10.5)
[2022-03-22 13:58] LABS: TOTAL PROTEIN 7.4 g/dL (6.4-8.3)
[2022-03-22 14:00] LABS: TOTAL BILIRUBIN 0.8 mg/dL (0.2-1.2)
== END ==
LOC: LAB 13:31
PROVIDERS: Internal Medicine Medical Oncology
DX: E83.118 Other hemochromatosis (principal)

== ENCOUNTER 2022-03-26 10:43 | Emergency (ER) | payer OTHER ==
[~2022-03-26] VITALS: Ht 182.9 cm; Wt 111.3 kg
[~2022-03-26 10:43] MED LIST changes: -AMLODIPINE BESYL5 MG PO; -ESCITALOPRAM10 MG PO; -QUETIAPINE FUMA25 M3 PO; -TESTOSTERO200 MG/1 M IM; -VITAMIN D21250 MCG PO; -ZYLOPRIM 100MG100 MG PO
[2022-03-26] MEDS ORDERED: AMLODIPINE BESYL5 MG PO (11:25)
[2022-03-26] MEDS ORDERED: ESCITALOPRAM10 MG PO (11:26)
[2022-03-26] MEDS ORDERED: VITAMIN D21250 MCG PO (11:28)
[2022-03-26] MEDS ORDERED: QUETIAPINE FUMA25 M3 PO (11:28)
[2022-03-26] MEDS ORDERED: ZYLOPRIM 100MG100 MG PO (11:29)
[2022-03-26] MEDS ORDERED: TESTOSTERO200 MG/1 M IM (11:29)
[2022-03-26 11:57] VITALS: BP 122/72
== END 2022-03-26 11:58 | disposition home or self-care (01) ==
LOC: ED 10:43
DX: M25.462 Effusion, left knee (principal); M25.562 Pain in left knee; Z28.310 Unvaccinated for COVID-19

== ENCOUNTER → 2022-03-28 | Outpatient (CLI) | payer OTHER ==
[~2022-03-28] MED LIST changes: +AMLODIPINE BESYL5 MG PO; +ESCITALOPRAM10 MG PO; +QUETIAPINE FUMA25 M3 PO; +TESTOSTERO200 MG/1 M IM; +VITAMIN D21250 MCG PO; +ZYLOPRIM 100MG100 MG PO
== END ==
LOC: RAD 10:00
DX: M25.462 Effusion, left knee (principal); M79.89 Other specified soft tissue disorders

== ENCOUNTER → 2022-03-30 | Outpatient (CLI) | payer OTHER | LOC: RAD 19:26 | DX: M71.22 Synovial cyst of popliteal space [Baker], left knee (principal) ==

== ENCOUNTER → 2022-04-06 | Outpatient (CLI) | payer OTHER ==
[2022-04-06 16:05] LABS: BASO # 0.02 K/mm3 (0.02-0.10); EOS # 0.01 K/mm3 (0.04-0.40); EOS % 0.1 % (0.0-4.0); HEMATOCRIT 52.9 % (42.0-52.0); HEMOGLOBIN 17.2 g/dL (13.5-18.0); LYMPH# 0.96 K/mm3 (1.50-4.00); MEAN CELL VOLUME 91 fl (78-100); MEAN CORPUSCULAR HEMOGLOBIN 30 pg (27-31); MEAN CORPUSCULAR HGB CONC 33 g/dL (33-37); MEAN PLATELET VOLUME 9.6 fl (7.4-10.4); MONO # 0.42 K/mm3 (0.20-0.80); NEU # 10.56 K/mm3 (1.40-6.50); PLATELET COUNT 313 K/mm3 (130-400); RED BLOOD COUNT 5.84 M/mm3 (4.20-5.60); RED CELL DISTRIBUTION WIDTH 13.1 % (11.5-14.5); WHITE BLOOD COUNT 12.1 K/mm3 (4.8-10.8)
[2022-04-06 16:21] LABS: ALBUMIN 4.7 g/dL (3.5-5.0); POTASSIUM 3.9 mmol/L (3.5-5.1)
[2022-04-06 16:22] LABS: CALCIUM 10.1 mg/dL (8.3-10.5)
[2022-04-06 16:24] LABS: TOTAL PROTEIN 7.8 g/dL (6.4-8.3)
[2022-04-06 16:26] LABS: TOTAL BILIRUBIN 0.4 mg/dL (0.2-1.2)
[2022-04-06 16:31] LABS: MAGNESIUM 2.26 mg/dL (1.60-2.60)
[2022-04-06 17:19] LABS: ERYTHROCYTE SEDIMENTATION RATE 3 mm/hr (0-20)
== END ==
LOC: LAB 15:26
PROVIDERS: Internal Medicine
DX: Z12.5 Encounter for screening for malignant neoplasm of prostate (principal); Z00.00 Encounter for general adult medical examination without abnormal findings

== ENCOUNTER → 2022-05-04 | Outpatient (CLI) | payer OTHER | LOC: LAB 15:33 | DX: Z00.00 Encounter for general adult medical examination without abnormal findings (principal); E23.7 Disorder of pituitary gland, unspecified ==

== ENCOUNTER → 2022-05-12 | Outpatient (CLI) | payer OTHER | LOC: LAB 10:28 | DX: U07.1 COVID-19 (principal) ==

== ENCOUNTER → 2022-06-01 | Outpatient (CLI) | payer OTHER ==
[2022-06-01 15:15] LABS: HEMOGLOBIN 16.9 g/dL (13.5-18.0); MEAN CELL VOLUME 92 fl (78-100); MEAN CORPUSCULAR HEMOGLOBIN 30 pg (27-31); MEAN CORPUSCULAR HGB CONC 33 g/dL (33-37); MEAN PLATELET VOLUME 9.8 fl (7.4-10.4); PLATELET COUNT 250 K/mm3 (130-400); RED BLOOD COUNT 5.66 M/mm3 (4.20-5.60); RED CELL DISTRIBUTION WIDTH 14.9 % (11.5-14.5); WHITE BLOOD COUNT 8.4 K/mm3 (4.8-10.8)
[2022-06-01 15:22] LABS: ALBUMIN 4.4 g/dL (3.5-5.0)
[2022-06-01 15:23] LABS: POTASSIUM 4.3 mmol/L (3.5-5.1)
[2022-06-01 15:24] LABS: CALCIUM 9.6 mg/dL (8.3-10.5)
[2022-06-01 15:25] LABS: TOTAL PROTEIN 7.4 g/dL (6.4-8.3)
[2022-06-01 15:27] LABS: TOTAL BILIRUBIN 1.1 mg/dL (0.2-1.2)
[2022-06-01 15:58] LABS: LYMPHOCYTE 27 % (20-51); MONOCYTE 11 % (3-10); NEUTROPHILS 61 % (42-75)
== END ==
LOC: LAB 14:53
PROVIDERS: Internal Medicine
DX: E83.118 Other hemochromatosis (principal)

== ENCOUNTER → 2022-06-14 | Outpatient (CLI) | payer OTHER ==
[2022-06-14 09:15] LABS: BASO # 0.02 K/mm3 (0.02-0.10); EOS # 0.16 K/mm3 (0.04-0.40); EOS % 2.6 % (0.0-4.0); HEMATOCRIT 50.1 % (42.0-52.0); HEMOGLOBIN 16.8 g/dL (13.5-18.0); LYMPH# 1.49 K/mm3 (1.50-4.00); MEAN CELL VOLUME 90 fl (78-100); MEAN CORPUSCULAR HEMOGLOBIN 30 pg (27-31); MEAN CORPUSCULAR HGB CONC 34 g/dL (33-37); MEAN PLATELET VOLUME 9.6 fl (7.4-10.4); MONO # 0.67 K/mm3 (0.20-0.80); PLATELET COUNT 147 K/mm3 (130-400); RED BLOOD COUNT 5.54 M/mm3 (4.20-5.60); RED CELL DISTRIBUTION WIDTH 14.7 % (11.5-14.5); WHITE BLOOD COUNT 6.3 K/mm3 (4.8-10.8)
[2022-06-14 09:20] LABS: ALBUMIN 4.4 g/dL (3.5-5.0)
[2022-06-14 09:22] LABS: CALCIUM 9.3 mg/dL (8.3-10.5)
[2022-06-14 09:23] LABS: TOTAL PROTEIN 7.2 g/dL (6.4-8.3)
[2022-06-14 09:29] LABS: MAGNESIUM 1.78 mg/dL (1.60-2.60)
== END ==
LOC: LAB 08:50
PROVIDERS: Internal Medicine
DX: G47.33 Obstructive sleep apnea (adult) (pediatric) (principal); K90.9 Intestinal malabsorption, unspecified; I10 Essential (primary) hypertension

== ENCOUNTER → 2022-07-07 | Outpatient (CLI) | payer OTHER ==
[2022-07-07 14:24] LABS: BASO # 0.03 K/mm3 (0.02-0.10); HEMATOCRIT 50.7 % (42.0-52.0); HEMOGLOBIN 17.2 g/dL (13.5-18.0); LYMPH# 1.98 K/mm3 (1.50-4.00); MEAN CELL VOLUME 93 fl (78-100); MEAN CORPUSCULAR HEMOGLOBIN 32 pg (27-31); MEAN CORPUSCULAR HGB CONC 34 g/dL (33-37); MEAN PLATELET VOLUME 9.4 fl (7.4-10.4); MONO # 1.17 K/mm3 (0.20-0.80); NEU # 6.82 K/mm3 (1.40-6.50); PLATELET COUNT 206 K/mm3 (130-400); RED BLOOD COUNT 5.46 M/mm3 (4.20-5.60); RED CELL DISTRIBUTION WIDTH 14.4 % (11.5-14.5); WHITE BLOOD COUNT 10.1 K/mm3 (4.8-10.8)
== END ==
LOC: LAB 14:03
PROVIDERS: Internal Medicine Medical Oncology
DX: E83.118 Other hemochromatosis (principal)

== ENCOUNTER → 2022-08-17 | Outpatient (CLI) | payer OTHER ==
[2022-08-17 14:18] LABS: HEMATOCRIT 52.6 % (42.0-52.0); HEMOGLOBIN 17.7 g/dL (13.5-18.0)
== END ==
LOC: LAB 14:04
PROVIDERS: Internal Medicine Medical Oncology
DX: E83.118 Other hemochromatosis (principal)

== ENCOUNTER → 2022-08-18 | Outpatient (CLI) | payer OTHER ==
[2022-08-18 10:37] LABS: BASO # 0.03 K/mm3 (0.02-0.10); EOS # 0.04 K/mm3 (0.04-0.40); EOS % 0.3 % (0.0-4.0); HEMATOCRIT 52.7 % (42.0-52.0); HEMOGLOBIN 17.9 g/dL (13.5-18.0); LYMPH# 0.86 K/mm3 (1.50-4.00); MEAN CELL VOLUME 96 fl (78-100); MEAN CORPUSCULAR HEMOGLOBIN 33 pg (27-31); MEAN CORPUSCULAR HGB CONC 34 g/dL (33-37); MEAN PLATELET VOLUME 9.4 fl (7.4-10.4); MONO # 0.41 K/mm3 (0.20-0.80); NEU # 10.75 K/mm3 (1.40-6.50); PLATELET COUNT 177 K/mm3 (130-400); RED BLOOD COUNT 5.47 M/mm3 (4.20-5.60); WHITE BLOOD COUNT 12.2 K/mm3 (4.8-10.8)
[2022-08-18 10:42] LABS: ALBUMIN 4.6 g/dL (3.5-5.0); POTASSIUM 4.3 mmol/L (3.5-5.1)
[2022-08-18 10:43] LABS: CALCIUM 9.5 mg/dL (8.3-10.5)
[2022-08-18 10:45] LABS: TOTAL PROTEIN 7.7 g/dL (6.4-8.3)
== END ==
LOC: LAB 10:17
PROVIDERS: Internal Medicine Medical Oncology
DX: E83.118 Other hemochromatosis (principal)

== ENCOUNTER → 2022-11-24 | Outpatient (CLI) | payer OTHER ==
[2022-11-24 15:41] LABS: HEMATOCRIT 51.2 % (42.0-52.0); HEMOGLOBIN 17.3 g/dL (13.5-18.0)
== END ==
LOC: LAB 15:07
PROVIDERS: Internal Medicine Medical Oncology
DX: E83.118 Other hemochromatosis (principal)

== ENCOUNTER → 2023-01-03 | Outpatient (CLI) | payer OTHER ==
[2023-01-03 13:54] LABS: HEMOGLOBIN 17.5 g/dL (13.5-18.0)
== END ==
LOC: LAB 13:44
PROVIDERS: Internal Medicine Medical Oncology
DX: E83.118 Other hemochromatosis (principal)

== ENCOUNTER → 2023-01-11 | Outpatient (CLI) | payer OTHER ==
[2023-01-11 13:52] LABS: BASO # 0.02 K/mm3 (0.02-0.10); EOS # 0.09 K/mm3 (0.04-0.40); HEMATOCRIT 49.9 % (42.0-52.0); HEMOGLOBIN 16.4 g/dL (13.5-18.0); MEAN CELL VOLUME 96 fl (78-100); MEAN CORPUSCULAR HEMOGLOBIN 32 pg (27-31); MEAN CORPUSCULAR HGB CONC 33 g/dL (33-37); MEAN PLATELET VOLUME 9.4 fl (7.4-10.4); NEU # 5.92 K/mm3 (1.40-6.50); PLATELET COUNT 208 K/mm3 (130-400); RED CELL DISTRIBUTION WIDTH 11.7 % (11.5-14.5)
[2023-01-11 13:56] LABS: ALBUMIN 4.3 g/dL (3.5-5.0); POTASSIUM 4.1 mmol/L (3.5-5.1)
[2023-01-11 13:57] LABS: CALCIUM 9.2 mg/dL (8.3-10.5)
[2023-01-11 13:59] LABS: TOTAL PROTEIN 7.1 g/dL (6.4-8.3)
[2023-01-11 14:00] LABS: TOTAL BILIRUBIN 0.5 mg/dL (0.2-1.2)
== END ==
LOC: LAB 13:20
PROVIDERS: Internal Medicine Medical Oncology
DX: E83.118 Other hemochromatosis (principal)

== ENCOUNTER → 2023-07-30 | Outpatient (CLI) | payer OTHER ==
[2023-07-30 16:59] LABS: BASO # 0.03 K/mm3 (0.02-0.10); EOS # 0.11 K/mm3 (0.04-0.40); EOS % 1.1 % (0.0-4.0); HEMATOCRIT 54.1 % (42.0-52.0); LYMPH# 1.93 K/mm3 (1.50-4.00); MEAN CELL VOLUME 98 fl (78-100); MEAN CORPUSCULAR HEMOGLOBIN 33 pg (27-31); MEAN CORPUSCULAR HGB CONC 33 g/dL (33-37); MEAN PLATELET VOLUME 9.7 fl (7.4-10.4); MONO # 1.45 K/mm3 (0.20-0.80); NEU # 6.78 K/mm3 (1.40-6.50); PLATELET COUNT 201 K/mm3 (130-400); RED BLOOD COUNT 5.51 M/mm3 (4.20-5.60); RED CELL DISTRIBUTION WIDTH 12.9 % (11.5-14.5); WHITE BLOOD COUNT 10.4 K/mm3 (4.8-10.8)
[2023-07-30 17:03] LABS: POTASSIUM 4.1 mmol/L (3.5-5.1)
[2023-07-30 17:04] LABS: ALBUMIN 4.5 g/dL (3.5-5.0)
[2023-07-30 17:05] LABS: CALCIUM 9.6 mg/dL (8.3-10.5)
[2023-07-30 17:06] LABS: TOTAL PROTEIN 7.4 g/dL (6.4-8.3)
[2023-07-30 17:08] LABS: TOTAL BILIRUBIN 0.8 mg/dL (0.2-1.2)
[2023-07-30 17:13] LABS: MAGNESIUM 2.09 mg/dL (1.60-2.60)
[2023-07-30 18:58] LABS: ERYTHROCYTE SEDIMENTATION RATE 1 mm/hr (0-20)
[2023-07-31 16:19] LABS: TESTOSTERONE 520 ng/dL (221-716)
== END ==
LOC: LAB 15:55
PROVIDERS: Internal Medicine
DX: Z00.00 Encounter for general adult medical examination without abnormal findings (principal); E23.7 Disorder of pituitary gland, unspecified; F41.8 Other specified anxiety disorders; M10.9 Gout, unspecified; I10 Essential (primary) hypertension; E78.2 Mixed hyperlipidemia; K90.9 Intestinal malabsorption, unspecified; E55.9 Vitamin D deficiency, unspecified; G47.33 Obstructive sleep apnea (adult) (pediatric); R79.89 Other specified abnormal findings of blood chemistry; D12.6 Benign neoplasm of colon, unspecified

== ENCOUNTER 2023-10-12 13:56 | Outpatient (RCR) | payer OTHER ==
[2023-09-24 16:45] VITALS: BP 168/85
[~2023-10-12] VITALS: Ht 182.9 cm; Wt 111.3 kg
[2023-10-12 15:45] VITALS: BP 139/75
== END 2023-10-14 | disposition home or self-care (01) ==
LOC: AMSURD
DX: E23.7 Disorder of pituitary gland, unspecified (principal)
CPT/HCPCS: J1071

== ENCOUNTER 2023-12-07 15:09 | Outpatient (RCR) | payer OTHER ==
[2023-11-23 15:21] VITALS: BP 146/88
[~2023-12-07] VITALS: Ht 182.9 cm; Wt 111.3 kg
[~2023-12-07 15:09] MED LIST changes: +HCTZ 25MG25 MG PO; +NORVASC 10MG10 MG PO; +Testosterone Cyp in Oil 200 MG/ML 1 ML VIAL IM ONE
[2023-12-07] MEDS ORDERED: Testosterone Cyp in Oil 200 MG/ML 1 ML VIAL IM ONE (15:30)
[2023-12-07 15:44] VITALS: BP 148/85
[2023-12-28] MEDS ORDERED: DEPO-TESTOS200 MG/M1 IM (15:43)
== END 2023-12-13 | disposition home or self-care (01) ==
LOC: AMSURD
DX: E23.7 Disorder of pituitary gland, unspecified (principal)
CPT/HCPCS: J1071

== ENCOUNTER → 2024-02-06 | Outpatient (CLI) | payer OTHER ==
[~2024-02-06] MED LIST changes: +DEPO-TESTOS200 MG/M1 IM; -Testosterone Cyp in Oil 200 MG/ML 1 ML VIAL IM ONE
[2024-02-06 14:04] LABS: HEMATOCRIT 52.3 % (42.0-52.0); HEMOGLOBIN 17.8 g/dL (13.5-18.0); MEAN CELL VOLUME 97 fl (78-100); MEAN CORPUSCULAR HEMOGLOBIN 33 pg (27-31); MEAN CORPUSCULAR HGB CONC 34 g/dL (33-37); MEAN PLATELET VOLUME 9.2 fl (7.4-10.4); PLATELET COUNT 229 K/mm3 (130-400); RED BLOOD COUNT 5.38 M/mm3 (4.20-5.60); WHITE BLOOD COUNT 11.6 K/mm3 (4.8-10.8)
[2024-02-06 14:07] LABS: ALBUMIN 4.3 g/dL (3.5-5.0)
[2024-02-06 14:09] LABS: CALCIUM 9.8 mg/dL (8.3-10.5)
[2024-02-06 14:10] LABS: TOTAL PROTEIN 6.8 g/dL (6.4-8.3)
[2024-02-06 14:12] LABS: TOTAL BILIRUBIN 0.7 mg/dL (0.2-1.2)
[2024-02-06 14:25] LABS: LYMPHOCYTE 18 % (20-51); MONOCYTE 14 % (3-10); NEUTROPHILS 67 % (42-75)
== END ==
LOC: LAB 13:45
PROVIDERS: Nurse Practitioner
DX: E83.118 Other hemochromatosis (principal)

== ENCOUNTER → 2024-02-19 | Outpatient (CLI) | payer OTHER ==
[~2024-02-19] MED LIST changes: +DESVENLAFAXINE100 MG PO
[2024-02-19 14:40] LABS: BASO # 0.03 K/mm3 (0.02-0.10); EOS # 0.11 K/mm3 (0.04-0.40); EOS % 1.1 % (0.0-4.0); HEMATOCRIT 51.4 % (42.0-52.0); HEMOGLOBIN 17.4 g/dL (13.5-18.0); LYMPH# 1.81 K/mm3 (1.50-4.00); MEAN CELL VOLUME 98 fl (78-100); MEAN CORPUSCULAR HEMOGLOBIN 33 pg (27-31); MEAN CORPUSCULAR HGB CONC 34 g/dL (33-37); MONO # 1.33 K/mm3 (0.20-0.80); NEU # 6.31 K/mm3 (1.40-6.50); PLATELET COUNT 198 K/mm3 (130-400); RED BLOOD COUNT 5.24 M/mm3 (4.20-5.60); RED CELL DISTRIBUTION WIDTH 11.8 % (11.5-14.5); WHITE BLOOD COUNT 9.6 K/mm3 (4.8-10.8)
[2024-02-19 14:41] LABS: ALBUMIN 4.3 g/dL (3.5-5.0)
[2024-02-19 14:42] LABS: CALCIUM 9.7 mg/dL (8.3-10.5)
[2024-02-19 14:43] LABS: TOTAL PROTEIN 7.1 g/dL (6.4-8.3)
[2024-02-19 14:45] LABS: TOTAL BILIRUBIN 0.7 mg/dL (0.2-1.2)
== END ==
LOC: LAB 14:18
PROVIDERS: Nurse Practitioner
DX: E83.118 Other hemochromatosis (principal)

== ENCOUNTER → 2024-02-21 | Outpatient (CLI) | payer OTHER ==
[2024-02-21 14:26] LABS: BASO # 0.02 K/mm3 (0.02-0.10); EOS # 0.13 K/mm3 (0.04-0.40); EOS % 1.7 % (0.0-4.0); HEMATOCRIT 48.2 % (42.0-52.0); HEMOGLOBIN 16.7 g/dL (13.5-18.0); LYMPH# 1.71 K/mm3 (1.50-4.00); MEAN CELL VOLUME 96 fl (78-100); MEAN CORPUSCULAR HEMOGLOBIN 33 pg (27-31); MEAN CORPUSCULAR HGB CONC 35 g/dL (33-37); MEAN PLATELET VOLUME 8.8 fl (7.4-10.4); MONO # 0.88 K/mm3 (0.20-0.80); NEU # 4.87 K/mm3 (1.40-6.50); PLATELET COUNT 182 K/mm3 (130-400); RED BLOOD COUNT 5.01 M/mm3 (4.20-5.60); RED CELL DISTRIBUTION WIDTH 11.8 % (11.5-14.5); WHITE BLOOD COUNT 7.6 K/mm3 (4.8-10.8)
[2024-02-21 14:28] LABS: ALBUMIN 4.2 g/dL (3.5-5.0); CALCIUM 9.3 mg/dL (8.3-10.5); MAGNESIUM 1.89 mg/dL (1.60-2.60); TOTAL BILIRUBIN 0.6 mg/dL (0.2-1.2); TOTAL PROTEIN 6.8 g/dL (6.4-8.3)
[2024-03-26 15:39] LABS: TESTOSTERONE 602.6
== END ==
LOC: LAB 12:20
PROVIDERS: Internal Medicine
DX: I10 Essential (primary) hypertension (principal); E83.119 Hemochromatosis, unspecified; E23.7 Disorder of pituitary gland, unspecified

== ENCOUNTER → 2024-02-26 | Outpatient (CLI) | payer OTHER ==
[2024-02-26 13:38] LABS: HEMATOCRIT 47.4 % (42.0-52.0); HEMOGLOBIN 16.2 g/dL (13.5-18.0)
== END ==
LOC: LAB 13:26
PROVIDERS: Nurse Practitioner
DX: E83.118 Other hemochromatosis (principal)

== ENCOUNTER → 2024-03-12 | Outpatient (CLI) | payer OTHER ==
[2024-05-01 11:09] LABS: HEMATOCRIT 46.4 % (42.0-52.0); HEMOGLOBIN 15.8 g/dL (13.5-18.0); MEAN PLATELET VOLUME 9.2 fl (7.4-10.4); RED BLOOD COUNT 4.79 M/mm3 (4.20-5.60); RED CELL DISTRIBUTION WIDTH 12.4 % (11.5-14.5); WHITE BLOOD COUNT 7.7 K/mm3 (4.8-10.8)
== END ==
LOC: LAB 12:55
PROVIDERS: Nurse Practitioner
DX: E83.118 Other hemochromatosis (principal)

== ENCOUNTER → 2024-03-25 | Outpatient (CLI) | payer OTHER ==
[2024-03-25 13:41] LABS: HEMATOCRIT 46.2 % (42.0-52.0); HEMOGLOBIN 15.7 g/dL (13.5-18.0)
== END ==
LOC: LAB 13:23
PROVIDERS: Nurse Practitioner
DX: E83.118 Other hemochromatosis (principal)

== ENCOUNTER → 2024-05-13 | Outpatient (CLI) | payer OTHER ==
[2024-05-13 14:22] LABS: BASO # 0.05 K/mm3 (0.02-0.10); EOS # 0.09 K/mm3 (0.04-0.40); HEMATOCRIT 49.9 % (42.0-52.0); HEMOGLOBIN 16.9 g/dL (13.5-18.0); LYMPH# 1.41 K/mm3 (1.50-4.00); MEAN CELL VOLUME 96 fl (78-100); MEAN CORPUSCULAR HEMOGLOBIN 33 pg (27-31); MEAN CORPUSCULAR HGB CONC 34 g/dL (33-37); MEAN PLATELET VOLUME 9.1 fl (7.4-10.4); MONO # 1.01 K/mm3 (0.20-0.80); NEU # 6.48 K/mm3 (1.40-6.50); PLATELET COUNT 194 K/mm3 (130-400); RED BLOOD COUNT 5.19 M/mm3 (4.20-5.60); RED CELL DISTRIBUTION WIDTH 11.9 % (11.5-14.5); WHITE BLOOD COUNT 9.1 K/mm3 (4.8-10.8)
== END ==
LOC: LAB 13:40
PROVIDERS: Nurse Practitioner
DX: E83.118 Other hemochromatosis (principal)

== ENCOUNTER → 2024-06-10 | Outpatient (CLI) | payer OTHER ==
[2024-06-10 14:12] LABS: BASO # 0.04 K/mm3 (0.02-0.10); EOS # 0.09 K/mm3 (0.04-0.40); HEMOGLOBIN 16.9 g/dL (13.5-18.0); LYMPH# 1.82 K/mm3 (1.50-4.00); MEAN CELL VOLUME 95 fl (78-100); MEAN CORPUSCULAR HEMOGLOBIN 32 pg (27-31); MEAN CORPUSCULAR HGB CONC 34 g/dL (33-37); MEAN PLATELET VOLUME 9.2 fl (7.4-10.4); MONO # 1.28 K/mm3 (0.20-0.80); NEU # 6.07 K/mm3 (1.40-6.50); PLATELET COUNT 195 K/mm3 (130-400); RED BLOOD COUNT 5.29 M/mm3 (4.20-5.60); RED CELL DISTRIBUTION WIDTH 12.1 % (11.5-14.5); WHITE BLOOD COUNT 9.3 K/mm3 (4.8-10.8)
== END ==
LOC: LAB 13:15
PROVIDERS: Nurse Practitioner
DX: E83.118 Other hemochromatosis (principal)

== ENCOUNTER → 2024-07-11 | Outpatient (CLI) | payer OTHER ==
[2024-07-11 13:47] LABS: HEMATOCRIT 50.1 % (42.0-52.0); HEMOGLOBIN 16.9 g/dL (13.5-18.0); MEAN PLATELET VOLUME 9.1 fl (7.4-10.4); RED BLOOD COUNT 5.44 M/mm3 (4.20-5.60); RED CELL DISTRIBUTION WIDTH 13.4 % (11.5-14.5); WHITE BLOOD COUNT 7.8 K/mm3 (4.8-10.8)
[2024-07-11 13:54] LABS: ALBUMIN 4.1 g/dL (3.5-5.0)
[2024-07-11 13:56] LABS: CALCIUM 8.9 mg/dL (8.3-10.5)
[2024-07-11 13:57] LABS: TOTAL PROTEIN 6.8 g/dL (6.4-8.3)
[2024-07-11 13:59] LABS: TOTAL BILIRUBIN 0.8 mg/dL (0.2-1.2)
== END ==
LOC: LAB 13:29
PROVIDERS: Nurse Practitioner
DX: E83.118 Other hemochromatosis (principal)

== ENCOUNTER 2024-08-13 13:53 | Outpatient (RCR) | payer OTHER ==
[2024-07-17 14:16] VITALS: BP 135/83
[~2024-08-13] VITALS: Ht 182.9 cm; Wt 111.3 kg
[~2024-08-13 13:53] MED LIST changes: +Testosterone Cyp in Oil 200 MG/ML 1 ML VIAL IM ONE
[2024-08-13 14:10] VITALS: BP 142/77
[2024-08-13] MEDS ORDERED: Testosterone Cyp in Oil 200 MG/ML 1 ML VIAL IM ONE (14:15)
== END 2024-08-14 | disposition home or self-care (01) ==
LOC: AMSURD
DX: Z79.899 Other long term (current) drug therapy (principal)
CPT/HCPCS: J1071

== ENCOUNTER 2024-09-12 13:52 | Outpatient (RCR) | payer OTHER ==
[2024-08-28 14:23] VITALS: BP 151/77
--- NOTE | 2024-08-28 14:43 | NUR ---
TESTOSTERONE INJ GIVEN PER PHYSICIAN ORDER, WHILE WAITING FOR H&H RESULTS. PT YUDI WELL.
[2024-08-28 15:21] VITALS: BP 148/77
--- NOTE | 2024-08-28 15:22 | NUR ---
HGB 16.6 AND HCT 48.8 PRIOR TO PHLEBOTOMY. TIMEOUT DONE AT 1453 PHLEBOTOMY STARTED AT 1456. STOPPED AT 1506. TOTAL VOLUME OF BLOOD WITHDRAWN 505 ML. VSS. DC'D INT AND APPLIED PRESSURE TO SITE, THEN APPLIED BANDAID AND COBAN WRAP. PT DENIES ANY DISCOMFORT. LEFT FACILITY AMBULATORY .
[~2024-09-12] VITALS: Ht 182.9 cm; Wt 111.3 kg
[~2024-09-12 13:52] MED LIST changes: -Testosterone Cyp in Oil 200 MG/ML 1 ML VIAL IM ONE; +Testosterone Cyp in Oil 200 MG/ML 1 ML VIAL IM SCH
[2024-09-12] MEDS ORDERED: Testosterone Cyp in Oil 200 MG/ML 1 ML VIAL IM ONE (14:30)
[2024-09-12 15:10] VITALS: BP 140/71
== END 2024-09-13 ==
LOC: AMSURD
DX: Z01.89 Encounter for other specified special examinations (principal)
CPT/HCPCS: J1071

== ENCOUNTER → 2024-09-25 | Outpatient (CLI) | payer OTHER ==
[~2024-09-25] VITALS: Ht 182.9 cm; Wt 111.3 kg
[~2024-09-25] MED LIST changes: +Testosterone Cyp in Oil 200 MG/ML 1 ML VIAL IM ONE; -Testosterone Cyp in Oil 200 MG/ML 1 ML VIAL IM SCH
[2024-09-25 13:21] VITALS: BP 135/72
[2024-09-25 13:39] LABS: HEMATOCRIT 50.1 % (42.0-52.0)
== END ==
LOC: AMSURD 09-14 00:10 → EDSTATUS 09-14 13:09 → AMSURD 13:06
PROVIDERS: Internal Medicine
DX: E83.118 Other hemochromatosis (principal)
CPT/HCPCS: J1071

== ENCOUNTER → 2024-10-23 | Outpatient (CLI) | payer OTHER ==
[~2024-10-23] MED LIST changes: -Testosterone Cyp in Oil 200 MG/ML 1 ML VIAL IM ONE; +Testosterone Cyp in Oil 200 MG/ML 1 ML VIAL IM SCH
[2024-10-23 15:20] VITALS: BP 176/94
== END ==
LOC: AMSURD 14:47
DX: E23.7 Disorder of pituitary gland, unspecified (principal)
CPT/HCPCS: J1071

== ENCOUNTER → 2024-10-29 | Outpatient (CLI) | payer BC ==
[~2024-10-29] MED LIST changes: -Testosterone Cyp in Oil 200 MG/ML 1 ML VIAL IM SCH
[2024-10-29 14:23] LABS: HEMATOCRIT 47.5 % (42.0-52.0); HEMOGLOBIN 15.8 g/dL (13.5-18.0); MEAN PLATELET VOLUME 9.6 fl (7.4-10.4); RED BLOOD COUNT 4.91 M/mm3 (4.20-5.60); RED CELL DISTRIBUTION WIDTH 12.1 % (11.5-14.5); WHITE BLOOD COUNT 9.9 K/mm3 (4.8-10.8)
== END ==
LOC: LAB 13:54
PROVIDERS: Nurse Practitioner
DX: E83.118 Other hemochromatosis (principal)

== ENCOUNTER → 2024-11-06 | Outpatient (CLI) | payer BC ==
[~2024-11-06] VITALS: Ht 182.9 cm; Wt 111.3 kg
[~2024-11-06] MED LIST changes: +Testosterone Cyp in Oil 200 MG/ML 1 ML VIAL IM ONE
[2024-11-06 13:10] VITALS: BP 137/70
== END ==
LOC: AMSURD 12:53
DX: E23.7 Disorder of pituitary gland, unspecified (principal)
CPT/HCPCS: J1071

== ENCOUNTER → 2024-11-11 | Outpatient (CLI) | payer BC ==
[~2024-11-11] MED LIST changes: -Testosterone Cyp in Oil 200 MG/ML 1 ML VIAL IM ONE
[2024-11-11 13:54] LABS: BASO # 0.03 K/mm3 (0.02-0.10); EOS # 0.11 K/mm3 (0.04-0.40); HEMATOCRIT 48.2 % (42.0-52.0); HEMOGLOBIN 15.9 g/dL (13.5-18.0); LYMPH# 1.93 K/mm3 (1.50-4.00); MEAN CELL VOLUME 95 fl (78-100); MEAN CORPUSCULAR HEMOGLOBIN 31 pg (27-31); MEAN CORPUSCULAR HGB CONC 33 g/dL (33-37); MEAN PLATELET VOLUME 9.4 fl (7.4-10.4); MONO # 0.88 K/mm3 (0.20-0.80); NEU # 8.07 K/mm3 (1.40-6.50); PLATELET COUNT 216 K/mm3 (130-400); RED BLOOD COUNT 5.08 M/mm3 (4.20-5.60); RED CELL DISTRIBUTION WIDTH 12.1 % (11.5-14.5); WHITE BLOOD COUNT 11.1 K/mm3 (4.8-10.8)
[2024-11-11 14:09] LABS: ALBUMIN 4.2 g/dL (3.5-5.0)
[2024-11-11 14:11] LABS: TOTAL PROTEIN 7.5 g/dL (6.4-8.3)
[2024-11-11 14:13] LABS: TOTAL BILIRUBIN 0.4 mg/dL (0.2-1.2)
== END ==
LOC: LAB 13:38
PROVIDERS: Nurse Practitioner
DX: E83.118 Other hemochromatosis (principal)

== ENCOUNTER → 2024-11-20 | Outpatient (CLI) | payer BC ==
[~2024-11-20] VITALS: Ht 182.9 cm; Wt 111.3 kg
[2024-11-20 13:30] VITALS: BP 143/74
[2024-11-20 13:32] LABS: HEMATOCRIT 50.2 % (42.0-52.0); HEMOGLOBIN 16.4 g/dL (13.5-18.0)
[2024-11-20 13:55] VITALS: BP 138/77
[2024-11-20 14:03] VITALS: BP 138/77
== END ==
LOC: LAB 12:58
PROVIDERS: Nurse Practitioner
DX: E83.118 Other hemochromatosis (principal)

== ENCOUNTER → 2024-11-20 | Outpatient (CLI) | payer BC ==
[~2024-11-20] VITALS: Ht 182.9 cm; Wt 111.3 kg
[~2024-11-20] MED LIST changes: +Testosterone Cyp in Oil 200 MG/ML 1 ML VIAL IM SCH
[2024-11-20 13:23] VITALS: BP 143/74
== END ==
LOC: AMSURD 13:02
DX: E23.7 Disorder of pituitary gland, unspecified (principal)
CPT/HCPCS: J1071

== ENCOUNTER → 2024-12-04 | Outpatient (CLI) | payer BC ==
[~2024-12-04] VITALS: Ht 182.9 cm; Wt 111.3 kg
[~2024-12-04] MED LIST changes: +Testosterone Cyp in Oil 200 MG/ML 1 ML VIAL IM ONE; -Testosterone Cyp in Oil 200 MG/ML 1 ML VIAL IM SCH
[2024-12-04 13:12] VITALS: BP 159/74
[2024-12-04 13:24] LABS: HEMATOCRIT 45.9 % (42.0-52.0); HEMOGLOBIN 15.2 g/dL (13.5-18.0)
--- NOTE | 2024-12-04 13:33 | NUR ---
PT HERE FOR THERAPEUTIC PHLEBOTOMY. PRIOR TO PROCEDURE, HGB 15.2 HCT 45.9 AND BP 159/74. TIMEOUT DONE AT 1325. STARTED PHLEBOTOMY AT 1326. STOPPED PHLEBOTOMY AT 1335. TOTAL VOL 500ML WITHDRAWN. PT YUDI WELL. DC'D IV. NO R/S AT SITE. BP 120/79 .
== END ==
LOC: AMSURD 12:55
PROVIDERS: Internal Medicine
DX: E83.118 Other hemochromatosis (principal)
CPT/HCPCS: J1071

== ENCOUNTER → 2025-01-01 | Outpatient (CLI) | payer BC ==
[~2025-01-01] VITALS: Ht 182.9 cm; Wt 111.3 kg
[~2025-01-01] MED LIST changes: -Testosterone Cyp in Oil 200 MG/ML 1 ML VIAL IM ONE
[2025-01-01 13:15] VITALS: BP 126/66
[2025-01-01 13:32] LABS: HEMATOCRIT 45.2 % (42.0-52.0); HEMOGLOBIN 14.7 g/dL (13.5-18.0)
--- NOTE | 2025-01-01 14:44 | NUR ---
PT HERE FOR THERAPEUTIC PHLEBOTOMY. PRIOR TO PROCEDURE HGB 14.7 HCT 45.2 AND BP 126/66. TIMEOUT DONE AT 1350. STARTED PHLEBOTOMY AT 1353. STOPPED AT 1403. TOTAL VOL OF BLOOD WITHDRAWN WAS 500ML. BP 103/62 FOLLOWING PHLEBOTOMY. DENIES ANY SYMPTOMS. DC'D INT. HELD PRESSURE X5MIN. WRAPPED WITH COBAN. PT LEFT FACILITY AMBULATORY WITHOUT PROBLEM. NEXT PHLEBOTOMY IN 4 WEEKS.
== END ==
LOC: AMSURD 13:05
PROVIDERS: Internal Medicine
DX: E83.118 Other hemochromatosis (principal)